=== PATIENT | female | born 1950 | race Caucasian/White ===

== ENCOUNTER 2016-07-12 05:42 | Day surgery (SDC) | payer OTHER ==
--- NOTE | ~2016-07-12 | EGD ---
EGD REPORT [facility] [address] [address] NAME: WINNIE NORTON : [birth year] STATUS : REG [facility]#: [id number] AGE: 66 ADM/REG DATE : 07/12/16 MR#: [id number] REPORT SERV DATE: 07/12/16 DICTATED BY: MANDEEP LEGER DATE: 07/12/16 REPORT STATUS : Draft TRANSCRIBED BY: [facility] DATE: 07/12/16 [facility] Patient Name: Winnie Norton Date of : 1950 Attending MD: MANDEEP LEGER, Procedure Date No Time: 07/12/2016 Procedure: Colonoscopy Indications: Screening patient at increased risk: Family history 1st-degree relative with colorectal cancer >= 60 years old Referring MD: Cat Perez Medicines: Monitored Anesthesia Care Complications: No immediate complications. Estimated blood loss: None. Procedure: Pre-Anesthesia Assessment: - ASA Grade Assessment: III - A patient with severe systemic disease. After I obtained informed consent, the scope was passed under direct vision. Throughout the procedure, the patient's blood pressure, pulse, and oxygen saturations were monitored continuously. The PCF [id number] was introduced through the anus and advanced to the cecum, identified by appendiceal orifice and ileocecal valve. The colonoscopy was performed without difficulty. The patient tolerated the procedure well. The quality of the bowel preparation was good. Findings: The perianal and digital rectal examinations were normal. Multiple small-mouthed diverticula were found in the sigmoid colon. Internal hemorrhoids were found during retroflexion and were Grade II (internal hemorrhoids that prolapse but reduce spontaneously). The exam was otherwise without abnormality on direct and retroflexion views. Impression: - Diverticulosis in the sigmoid colon. - Internal hemorrhoids. - The examination was otherwise normal on direct and retroflexion views. Recommendation: - Patient has a contact number available for emergencies. The signs and symptoms of potential delayed complications were discussed with the patient. Return to normal activities tomorrow. Written discharge instructions were provided to the patient. - Return to previous diet. EGD REPORT [address] [address] NAME: WINNIE NORTON : [birth year] STATUS : REG [facility]#: [id number] AGE: 66 ADM/REG DATE : 07/12/16 MR#: [id number] REPORT SERV DATE: 07/12/16 DICTATED BY: MANDEEP LEGER DATE: 07/12/16 REPORT STATUS : Draft TRANSCRIBED BY: [employer] DATE: 07/12/16 - Continue present medications. - Repeat colonoscopy in 10 years for screening purposes. Procedure Code(s): --- Professional --- 38578, Colonoscopy, flexible, proximal to splenic flexure; diagnostic, with or without collection of specimen(s) by brushing or washing, with or without colon decompression (separate procedure) Diagnosis Code(s): --- Professional --- K64.1, Second degree hemorrhoids K57.30, Diverticulosis of large intestine without perforation or abscess without bleeding Z12.11, Encounter for screening for malignant neoplasm of colon Z80.0, Family history of malignant neoplasm of digestive organs CPT copyright 2013 [employer]. All rights reserved. The codes documented in this report are preliminary and upon medical billing coder review may be revised to meet current compliance requirements. MANDEEP LEGER, 07/12/2016 8:02 AM Number of Addenda: 0 Note Initiated On: 07/12/2016 7:32 AM Scope Withdrawal Time 0 hours 10 minutes 38 seconds [address] [place] [address]
[~2016-07-12 05:42] MED LIST: ALBUTEROL0.083 % INH; ASAB PO; BL FLAX SEED1000 MG PO; CALTRA600D PO; IMITREX50 PO; LEVOTHYROXIN50 MCG PO; MEP50TAB PO; NEUR300 PO; NYS500UDL PO; OXYCON10 PO; PHENTERMINE37.5 MG PO; PR12.5 PO; PROBIOTIC PO; PROTONIX PO; PROVHFA INH; SELENIUM PO; SOMATAB PO; SPIRIVA INH; SPORANOX PO; SYMBICORT 160/41 INH INH; V5 PO; VITAMIN B-122500 MCG SL; VITAMIN B1 PO
== END 2016-07-12 23:59 | disposition home or self-care (01) ==
LOC: DMU 05:42
PROVIDERS: Internal Medicine Gastroenterology
PROC: 0DJD8ZZ Inspection of Lower Intestinal Tract, Via Natural or Artificial Opening Endoscopic (ICD-10-PCS; principal; 2016-07-12 07:30)
DX: Z12.11 Encounter for screening for malignant neoplasm of colon (principal); K57.30 Diverticulosis of large intestine without perforation or abscess without bleeding; K64.1 Second degree hemorrhoids; K21.9 Gastro-esophageal reflux disease without esophagitis; E78.00 Pure hypercholesterolemia, unspecified; E03.9 Hypothyroidism, unspecified; E78.5 Hyperlipidemia, unspecified; J44.9 Chronic obstructive pulmonary disease, unspecified; M19.90 Unspecified osteoarthritis, unspecified site; G43.909 Migraine, unspecified, not intractable, without status migrainosus; F41.0 Panic disorder [episodic paroxysmal anxiety]; H91.90 Unspecified hearing loss, unspecified ear; Z80.0 Family history of malignant neoplasm of digestive organs; Z90.710 Acquired absence of both cervix and uterus; Z79.891 Long term (current) use of opiate analgesic; Z79.82 Long term (current) use of aspirin; Z79.899 Other long term (current) drug therapy; Z88.5 Allergy status to narcotic agent; Z88.1 Allergy status to other antibiotic agents; Z88.8 Allergy status to other drugs, medicaments and biological substances; Z87.891 Personal history of nicotine dependence; M85.80 Other specified disorders of bone density and structure, unspecified site; Z90.49 Acquired absence of other specified parts of digestive tract; Z98.51 Tubal ligation status; Z98.890 Other specified postprocedural states